=== PATIENT | male | born 1980 | race Caucasian/White ===

== ENCOUNTER 2021-12-06 17:00 | Emergency (ER) | payer SELFPAY ==
[~2021-12-06] VITALS: Wt 74.8 kg
[2021-12-06 18:10] LABS: BILIRUBIN Negative (Negative); BLOOD Trace-Lysed (Negative); CLARITY Clear (Clear); COLOR Yellow (Yellow); GLUCOSE Negative (Negative); KETONE Negative (Negative); LEUKO ESTERASE Negative (Negative); NITRITE Negative (Negative); SPECIFIC GRAVITY <= 1.005 (1.001-1.030); UROBILINOGEN 0.2 E.U./dl (0.0-1.0)
[2021-12-06 18:17] LABS: URINE AMPHETAMINES < 1000 (1000ng/ml); URINE BARBITURATES < 200 (200ng/ml); URINE BENZODIAZEPINES < 200 (200ng/ml); URINE CANNABINOIDS (THC) > 50 (50ng/ml); URINE COCAINE < 300 (300ng/ml); URINE METHADONE < 300 (300ng/ml); URINE OPIATES < 300 (300ng/ml)
[2021-12-06 18:23] LABS: BACTERIA 1+
[2021-12-06 18:24] LABS: EPITHELIAL CELLS 0-2; RBC 0-2 rbc/hpf (0-2); WBC 0-2 wbc/hpf (0-5)
[2021-12-06 18:25] LABS: URINE PHENCYCLIDINE < 25 (25ng/ml)
== END 2021-12-07 07:20 | disposition home or self-care (01) ==
LOC: ED 17:00
PROVIDERS: Internal Medicine
DX: F10.920 Alcohol use, unspecified with intoxication, uncomplicated (principal); R45.1 Restlessness and agitation; F17.200 Nicotine dependence, unspecified, uncomplicated; Y90.9 Presence of alcohol in blood, level not specified